=== PATIENT | female | born 1960 | race Caucasian/White ===

== ENCOUNTER 2019-01-31 20:29 | Emergency (ER) | payer OTHER ==
[~2019-01-31] VITALS: Ht 175.2 cm; Wt 77.1 kg
[~2019-01-31 20:29] MED LIST: ANAPROX DS550 MG PO; CALCIUM WITH VI1 TAB PO; KEFLEX500 MG PO
[2019-01-31 21:24] VITALS: BP 111/68
[2019-01-31] MEDS ORDERED: PREDNISONE20 M1 PO (21:53)
== END 2019-01-31 21:56 | disposition home or self-care (01) ==
LOC: ED
DX: T63.441A Toxic effect of venom of bees, accidental (unintentional), initial encounter (principal); L25.8 Unspecified contact dermatitis due to other agents; Y92.89 Other specified places as the place of occurrence of the external cause

== ENCOUNTER 2021-07-14 15:47 | Emergency (ER) | payer OTHER ==
[~2021-07-14] VITALS: Wt 74.8 kg
[~2021-07-14 15:47] MED LIST changes: +PREDNISONE20 M1 PO
[2021-07-14 16:47] LABS: BASO % 0.2 % (0.0-1.0); EOS # 0.1 10*3/uL (0.0-0.4); EOS % 0.8 % (1.0-4.0); HEMATOCRIT 42.4 % (37.0-47.0); LYMPH # 3.3 10*3/uL (1.3-4.4); LYMPH % 37.3 % (27.0-41.0); MEAN CELL VOLUME 91.8 fl (81.0-99.0); MEAN CORPUSCULAR HGB 29.9 pg (27.0-31.0); MEAN CORPUSCULAR HGB CONC 32.5 g/dl (33.0-37.0); MEAN PLATELET VOLUME 10.8 fl (9.6-12.3); MONO # 0.8 10*3/uL (0.1-1.0); MONO % 8.6 % (3.0-9.0); NEUT # 4.6 10*3/uL (2.3-7.9); NEUT % 52.8 % (47.0-73.0); PLATELET COUNT AUTOMATED 212 10*3/uL (130-400); RED BLOOD COUNT 4.62 10*6/uL (4.10-5.10); RED CELL DISTRI WIDTH 12.3 % (0-14.5); WHITE BLOOD COUNT 8.8 10*3/uL (4.8-10.8)
[2021-07-14 17:08] LABS: BUN 19 mg/dl (7-24); CHLORIDE 110 mmol/L (98-107); CREATININE 0.85 mg/dL (0.55-1.02); POTASSIUM 3.7 mmol/L (3.5-5.1); SODIUM 141 mmol/L (136-145); TROPONIN I < 0.015 ng/ml (<0.045)
[2021-07-14] MEDS ORDERED: MEDROL DOSEPAK4 MG PO (19:27)
[2021-07-14] MEDS ORDERED: CLARITIN10 MG PO (19:27)
[2021-07-14] MEDS ORDERED: PEPCID20 MG PO (19:27)
[2021-07-14] MEDS ORDERED: EPIPEN 2-P0.3 MG/0.3 IJ (19:27)
[2021-07-14 19:44] VITALS: BP 131/61
== END 2021-07-14 20:05 | disposition home or self-care (01) ==
LOC: ED 15:47
PROVIDERS: Emergency Medicine
DX: T63.441A Toxic effect of venom of bees, accidental (unintentional), initial encounter (principal); Y92.89 Other specified places as the place of occurrence of the external cause

== ENCOUNTER 2021-08-04 19:20 | Emergency (ER) | payer OTHER ==
[~2021-08-04] VITALS: Ht 175.2 cm; Wt 74.8 kg
[~2021-08-04 19:20] MED LIST changes: +CLARITIN10 MG PO; +EPIPEN 2-P0.3 MG/0.3 IJ; +MEDROL DOSEPAK4 MG PO; +PEPCID20 MG PO
[2021-08-04 19:55] VITALS: BP 110/71
== END 2021-08-04 20:35 | disposition home or self-care (01) ==
LOC: ED 19:20
DX: T63.441A Toxic effect of venom of bees, accidental (unintentional), initial encounter (principal); T78.40XA Allergy, unspecified, initial encounter; X58.XXXA Exposure to other specified factors, initial encounter; Y92.89 Other specified places as the place of occurrence of the external cause

== ENCOUNTER 2024-11-19 10:22 | Emergency (ER) | payer OTHER ==
[~2024-11-19] VITALS: Ht 177.8 cm; Wt 79.4 kg
[2024-11-19 10:52] VITALS: BP 117/67
[2024-11-19] MEDS ORDERED: Acetaminophen/Oxycodone 5 MG/325 MG TABLET PO ONE (11:00)
[2024-11-19] MEDS ORDERED: MELOXICAM15 MG PO (11:03)
== END 2024-11-19 11:28 | disposition home or self-care (01) ==
LOC: ED 10:22
DX: S93.402A Sprain of unspecified ligament of left ankle, initial encounter (principal); Z90.49 Acquired absence of other specified parts of digestive tract; W22.8XXA Striking against or struck by other objects, initial encounter; Y93.89 Activity, other specified; Y92.89 Other specified places as the place of occurrence of the external cause; Y99.8 Other external cause status